=== PATIENT | female | born 1985 | race African-American/Black ===

== ENCOUNTER 2016-09-03 23:05 | Emergency (ER) | payer OTHER ==
[~2016-09-03] VITALS: Ht 157.5 cm; Wt 60.8 kg
[~2016-09-03 23:05] MED LIST: ACETAMINOPHEN-1 EAC1 ORAL; NITROFURANTOIN100 M2 ORAL; NKM; NORCO 5-325 TA1 EACH PO; PHENAZOPYRIDIN200 MG ORAL; VIBRAMYCIN100 MG ORAL
[2016-09-04 00:14] LABS: APPEARANCE,URINE CLEAR; KETONES,URINE NEGATIVE (NEGATIVE); LEUKOCYTE ESTERASE ,URINE 1+ (NEGATIVE); NITRITE,URINE NEGATIVE (NEGATIVE); PH,URINE 6 (4.5-8.0); PROTEIN,URINE NEGATIVE (NEGATIVE); UROBILINOGEN,URINE NORMAL MG/DL (0.0-1.0)
[2016-09-04 00:28] LABS: BACTERIA,URINE FEW /HPF; RBC,URINE 0 /HPF (0 - 2); SQUAMOUS EPITHELIAL CELL,UR MODERATE /LPF (NONE/OCC); WBC,URINE 0-2 /HPF (0 - 2)
[2016-09-04] MEDS ORDERED: METROGEL-VAGINA70 G1 VAGIN (00:45)
[2016-09-04] MEDS ORDERED: FLUCONAZOLE100 MG ORAL (00:45)
[2016-09-04 01:22] VITALS: BP 119/69
--- NOTE | 2016-09-04 02:44 | Emergency Room Report ---
History of Present Illness General Chief Complaint: Vaginal Source: Patient Present Illness HPI Patient present with complaints of vaginal itching and discharge Denies any pelvic pain Patient had a previous UTI and was also concerned about that Patient essentially active with one partner Denies any fevers or chills denies any vomiting or diarrhea She reports her vaginal discharge to have a foul smell to it Denies any recent antibiotic use Allergies: Coded Allergies: No Known Allergies (Unverified , 11/11/12) Patient History Past Medical History: see triage record Pertinent Family History: none Last Menstrual Period: AUG 26 Now: No : 2 Reviewed Nursing Documentation: PMH: Agreed, PSxH: Agreed Nursing Documentation-PMH Past Medical History: No Stated History Review of Systems All Other Systems: negative except mentioned in HPI Physical Exam Vital Signs Date Time Temp Pulse Resp B/P Pulse Ox O2 Delivery O2 Flow Rate FiO2 09/03/16 23:22 98.1 79 18 119/69 100 Room Air Sp02 EP Interpretation: reviewed, normal General Appearance: well appearing, no apparent distress Head: normocephalic, atraumatic Eyes: bilateral eye EOMI, bilateral eye PERRL ENT: normal pharynx, no angioedema Neck: supple, thyroid normal Gastrointestinal: non tender, soft, no mass, no organomegaly Genitourinary: no CVA tenderness Musculoskeletal: normal inspection Neurologic: alert, oriented x3, responsive Skin: normal color, no rash, warm/dry Lymphatic: no adenopathy Medical Decision Making Diagnostic Impression: Primary Impression: vaginosis ER Course Given the patient's lack of any pelvic or abdominal pain given the clinical symptoms of the discharge patient has been treated clinically for bacterial vaginosis possible yeast infection Further pelvic exam was deferred to [employer] followup in the next 2-3 days in a patient with any change in symptoms Urine sample did not show any obvious infectious pathology , Labs Test 09/04/16 00:00 Urine Color Pale yellow Urine Appearance Clear Urine pH 6 (4.5-8.0) Urine Specific [place] 1.015 (1.005-1.035) Urine Protein Negative (NEGATIVE) Urine Glucose (UA) Negative (NEGATIVE) Urine Ketones Negative (NEGATIVE) Urine Occult Blood Negative (NEGATIVE) Urine Nitrite Negative (NEGATIVE) Urine Bilirubin Negative (NEGATIVE) Urine Urobilinogen Normal MG/DL (0.0-1.0) Urine Leukocyte Esterase 1+ (NEGATIVE) Urine RBC 0 /HPF (0 - 2) Urine WBC 0-2 /HPF (0 - 2) Urine Squamous Epithelial Cells Moderate /LPF (NONE/OCC) Urine Bacteria Few /HPF (NONE) Urine HCG, Qualitative Negative Last Vital Signs Date Time Temp Pulse Resp B/P Pulse Ox O2 Delivery O2 Flow Rate FiO2 09/04/16 01:22 98.1 75 18 119/69 100 Room Air Status: unchanged Disposition: HOME, SELF-CARE Condition: Stable Scripts Fluconazole (FLUCONAZOLE) 100 Mg Tablet 100 MG ORAL DAILY, #1 TAB 0 Refills Prov: RODRIGO CASTANEDA D.O. 09/04/16 Metronidazole* (METROGEL-VAGINAL*) 70 Gm Gel.w.appl 1 APPL VAGIN EVERY 12 HOURS for 7 Days, #70 GM Prov: RODRIGO CASTANEDA D.O. 09/04/16 Referrals: JOSEPHINE GONZALEZ,REFERRING (PCP) Patient Instructions: Bacterial Vaginosis, [id number] Additional Instructions: Patient is provided with the discharge instructions notified to follow up with primary doctor in the next 2-3 days otherwise return to the er with any worsening symptoms. Please note that this report is being documented using [employer] technology. This can lead to erroneous entry secondary to incorrect interpretation by the dictating instrument. RODRIGO CASTANEDA D.O. Sep 04, 2016 02:44
== END 2016-09-04 01:24 | disposition home or self-care (01) ==
LOC: EMR 23:45
DX: N76.0 Acute vaginitis (principal)
CPT/HCPCS: 81003; 81025; 99284

== ENCOUNTER 2017-04-14 19:45 | Emergency (ER) | payer OTHER ==
[~2017-04-14] VITALS: Ht 157.5 cm; Wt 68.5 kg
[~2017-04-14 19:45] MED LIST changes: +FLUCONAZOLE100 MG ORAL; +METROGEL-VAGINA70 G1 VAGIN
[2017-04-14] MEDS ORDERED: Mylanta II UD 30ml ORAL ONE (20:30)
[2017-04-14] MEDS ORDERED: Lidocaine 2% Visc 15ml soln ORAL ONE (20:30)
--- NOTE | 2017-04-14 20:54 | Emergency Room Report ---
History of Present Illness General Chief Complaint: Abdominal Pain Source: Patient Present Illness HPI 31-year-old female presents to the emergency department complaining of 9/10 in severity epigastric pain intermittently x1 month. Patient denies fevers or chills. Patient reports associated nausea denies vomiting, constipation or diarrhea. Patient describes that she feels as though her stomach is in a knot. Patient denies dysuria, hematuria, urinary frequency or . Patient states that she was evaluated by her primary care doctor approximately one month ago and was prescribed cimetidine to be taking at night. Patient states she continues to have symptoms during the day. Denies blood in the stool or dark tarry stools. Denies NSAID use. Patient states eating food can sometimes exacerbate her symptoms but she also symptoms on and stomach.Denies CP, Palpitations, LOC, AMS, dizziness, Changes in Vision, Sensation, paresthesias, or a sudden severe headache. Allergies: Coded Allergies: No Known Allergies (Unverified , 11/11/12) Patient History Past Medical History: see triage record Past Surgical History: none Pertinent Family History: none Last Menstrual Period: Apr 10 Now: No : 2 Reviewed Nursing Documentation: PMH: Agreed, PSxH: Agreed Nursing Documentation-PMH Past Medical History: No Stated History Review of Systems All Other Systems: negative except mentioned in HPI Physical Exam Vital Signs Date Time Temp Pulse Resp B/P (MAP) Pulse Ox O2 Delivery O2 Flow Rate FiO2 04/14/17 20:14 97.9 73 18 117/75 98 Room Air Sp02 EP Interpretation: reviewed, normal General Appearance: no apparent distress, alert, GCS 15, non-toxic Head: normocephalic, atraumatic Eyes: bilateral eye normal inspection, bilateral eye PERRL ENT: hearing grossly normal, normal voice Neck: full range of motion, supple/symm/no masses Respiratory: lungs clear, normal breath sounds, speaking full sentences Cardiovascular #1: regular rate, rhythm Gastrointestinal: normal bowel sounds, non tender, soft, no guarding, no rebound Rectal: deferred Genitourinary: normal inspection, no CVA tenderness Musculoskeletal: back normal, gait/station normal, normal range of motion, non- tender Neurologic: alert, oriented x3, responsive, motor strength/tone normal, sensory intact, speech normal Psychiatric: judgement/insight normal, memory normal, mood/affect normal Skin: normal color, no rash, warm/dry, well hydrated Medical Decision Making PA Attestation Dr. mart is my supervising Physician whom patient management has been discussed with. Diagnostic Impression: Primary Impression: Gastritis Qualified Codes: K29.00 - Acute gastritis without bleeding ER Course 31-year-old female presents to the emergency department complaining of 9/10 in severity epigastric pain intermittently x1 month. Patient denies fevers or chills. Patient reports associated nausea denies vomiting, constipation or diarrhea. Patient describes that she feels as though her stomach is in a knot. Patient denies dysuria, hematuria, urinary frequency or . Patient states that she was evaluated by her primary care doctor approximately one month ago and was prescribed cimetidine to be taking at night. Patient states she continues to have symptoms during the day. Denies blood in the stool or dark tarry stools. Denies NSAID use. Patient states eating food can sometimes exacerbate her symptoms but she also symptoms on and stomach.Denies CP, Palpitations, LOC, AMS, dizziness, Changes in Vision, Sensation, paresthesias, or a sudden severe headache. Ddx considered but are not limited to GERD, PUD, GE, pancreatitis, gallstones, colitis, acute appy, SBO, * , Vital signs: pt. is afebrile, H&PE are most consistent with Gastritis. - no tenderness upon palpation of PE , no suspicious for pancreatitis or gall stones ORDERS: -Urine Hcg: negative ED INTERVENTIONS: -Gi Cocktail -Zantac PO -d/w pt. conservative treatment with addition of omeprazole daily, however she needs to have close outpatient follow up with her PMD, and Gi Specialist evaluation is recommended. d/w pt. that if symptoms do not improve with rx's that she may have H.pylori. DISCHARGE: At this time pt. is stable for d/c to home. Will provide printed patient care instructions, and any necessary prescriptions. Care plan and follow up instructions have been discussed with the patient prior to discharge. Labs Test 04/14/17 20:25 Urine HCG, Qualitative Negative Last Vital Signs Date Time Temp Pulse Resp B/P (MAP) Pulse Ox O2 Delivery O2 Flow Rate FiO2 04/14/17 20:14 97.9 73 18 117/75 98 Room Air Disposition: HOME, SELF-CARE Condition: Stable Scripts Omeprazole (OMEPRAZOLE) 20 Mg Capsule. 20 MG ORAL DAILY for 14 Days, #28 CAP Prov: Darlene Purcell 04/14/17 Patient Instructions: Gastritis, Adult Additional Instructions: Take medications as directed. Follow up with a Primary Care Provider in 3-5 days, even if your symptoms have resolved. GI SPECIALIST EVALUATION IS RECOMMENDED * --Please review list of primary care clinics, if you do not already have a primary care provider Return sooner to ED if new symptoms occur, or current symptoms become worse. - Please note that this Emergency Department Report was dictated using [employer] challenge instructor technology software, occasionally this can lead to erroneous entry secondary to interpretation by the dictation equipment. Darlene Purcell Apr 14, 2017 20:54
[2017-04-14] MEDS ORDERED: OMEPRAZOLE20 M2 ORAL (20:57)
[2017-04-14 21:05] VITALS: BP 120/91
== END 2017-04-14 21:05 | disposition home or self-care (01) ==
LOC: EMR 20:30 → EEVIPCON 20:30 → EMR 21:05
DX: K29.70 Gastritis, unspecified, without bleeding (principal)
CPT/HCPCS: 81025; 99284

== ENCOUNTER 2018-05-27 15:41 | Emergency (ER) | payer OTHER ==
[~2018-05-27] VITALS: Ht 157.5 cm; Wt 69.9 kg
[~2018-05-27 15:41] MED LIST changes: +OMEPRAZOLE20 M2 ORAL
[2018-05-27 15:55] VITALS: BP 125/84
--- NOTE | 2018-05-27 16:00 | Emergency Room Report ---
History of Present Illness General Chief Complaint: Chest Pain Source: Patient Present Illness HPI Patient reports that several days ago she started with symptoms consistent with her gastritis burning and irritation in the epigastric area and felt some burning into the midsternal area Yesterday she took a green capsule does not know what the name is however is usually for her stomach after that her symptoms worsened Patient felt that her chest pain presented after that Denies any vomiting or diarrhea she reports that off-and-on the chest pain has been present now for the past 2 days as well Denies any pleurisy denies any recent travel Allergies: Coded Allergies: No Known Allergies (Unverified , 11/11/12) Patient History Past Medical History: see triage record Pertinent Family History: none Last Menstrual Period: 04/27/18 Now: No Reviewed Nursing Documentation: PMH: Agreed; PSxH: Agreed Nursing Documentation-PMH Past Medical History: No Stated History Review of Systems All Other Systems: negative except mentioned in HPI Physical Exam Vital Signs Date Time Temp Pulse Resp B/P (MAP) Pulse Ox O2 Delivery O2 Flow Rate FiO2 05/27/18 15:45 98.1 105 22 125/84 100 Room Air Sp02 EP Interpretation: reviewed, normal General Appearance: well appearing, no apparent distress Head: normocephalic, atraumatic Eyes: bilateral eye PERRL, bilateral eye EOMI ENT: hearing grossly normal, normal pharynx, TMs + canals normal, uvula midline Neck: full range of motion, supple, no meningismus, no bony tend Respiratory: lungs clear, normal breath sounds, no rhonchi, no respiratory distress, no retraction, no accessory muscle use Cardiovascular #1: normal peripheral pulses, regular rate, rhythm, no edema, no gallop, no JVD, no murmur Gastrointestinal: normal bowel sounds, non tender, soft, no mass, no organomegaly, non-distended, no guarding, no hernia, no pulsatile mass, no rebound Genitourinary: no CVA tenderness Musculoskeletal: normal inspection Neurologic: oriented x3, responsive, insurance office supervisor III-XII nml as tested, motor strength/ tone normal, sensory intact Psychiatric: mood/affect normal Skin: normal color, no rash, warm/dry, palpation normal Lymphatic: normal inspection, no adenopathy Medical Decision Making Diagnostic Impression: Primary Impression: Chest pain ER Course Patient is a fairly complex patient with multiple differential to consideration including but not limited to cardiac cardiopulmonary and vascular emergencies Patient's EKG and chest x-ray are normal Consideration for pulmonary embolism is made however low likelihood given the scarring scale Patient resting comfortably the Mylanta did improve her gastric symptoms Patient will have conservative outpatient trial return with any worsening symptoms EKG Diagnostic Results Rate: normal Rhythm: NSR ST Segments: no acute changes Rhythm Strip Diag. Results EP Interpretation: yes Rate: 74 Rhythm: NSR, no PVC's, no ectopy Chest X-Ray Diagnostic Results Chest X-Ray Diagnostic Results : Chest X-Ray Ordered: Yes # of Views/Limited/Complete: 1 View Indication: Chest Pain EP Interpretation: Yes Interpretation: no consolidation, no effusion, no pneumothorax Impression: No acute disease Electronically Signed by: Liv Lennon DO Last Vital Signs Date Time Temp Pulse Resp B/P (MAP) Pulse Ox O2 Delivery O2 Flow Rate FiO2 05/27/18 15:45 98.1 105 22 125/84 100 Room Air Status: improved Disposition: HOME, SELF-CARE Condition: Improved Scripts Mag Hydrox/Al Hydrox/Simeth (MAALOX MAXIMUM STRENGTH SUSP) 355 Ml Oral.susp 30 ML PO BID for 5 Days, ML Prov: Liv Lennon DO 05/27/18 Additional Instructions: Patient is provided with the discharge instructions notified to follow up with primary doctor in the next 2-3 days otherwise return to the er with any worsening symptoms. Please note that this report is being documented using [employer] technology. This can lead to erroneous entry secondary to incorrect interpretation by the dictating instrument. Liv Lennon DO May 27, 2018 16:00
[2018-05-27] MEDS ORDERED: MAALOX MAXIMUM355 M1 PO (16:38)
[2018-05-27 16:53] VITALS: BP 113/67
--- NOTE | 2018-05-27 17:01 | Diagnostic Imaging Report ---
Indication: Chest pain Technique: One view of the chest Comparison: Findings: Lungs and pleural spaces are clear. Heart size is normal Impression: No acute process
== END 2018-05-27 16:53 | disposition home or self-care (01) ==
LOC: EMR 16:13
DX: R07.9 Chest pain, unspecified (principal); R10.13 Epigastric pain
CPT/HCPCS: 71045; 99283

== ENCOUNTER 2018-07-07 11:17 | Emergency (ER) | payer OTHER ==
[~2018-07-07] VITALS: Ht 157.5 cm; Wt 69.4 kg
[~2018-07-07 11:17] MED LIST changes: +MAALOX MAXIMUM355 M1 PO
[2018-07-07] MEDS ORDERED: XANAX0.25 MG ORAL (11:27)
[2018-07-07 11:28] VITALS: BP 122/75
--- NOTE | 2018-07-07 11:39 | Emergency Room Report ---
History of Present Illness General Chief Complaint: Dizziness Source: Patient Present Illness HPI Patient present with complaints of history of the normal menstrual bleeding along with lightheadedness and some dizziness patient reports that She initially had IUD device placed approximately 4 years ago She has been having heavy menstrual cycle since then Therefore she had the IUD device removed last week at [facility] she has been told by her primary physician that she is anemic and was on iron pills however has not taken them for the past 2 months Denies any chest pain denies any back or flank pain denies any vomiting Allergies: Coded Allergies: No Known Allergies (Unverified , 11/11/12) Patient History Past Medical History: see triage record Pertinent Family History: none Reviewed Nursing Documentation: PMH: Agreed; PSxH: Agreed Nursing Documentation-PMH Past Medical History: No History, Except For History Of Psychiatric Problem: Yes - anxiety Review of Systems All Other Systems: negative except mentioned in HPI Physical Exam Vital Signs Date Time Temp Pulse Resp B/P (MAP) Pulse Ox O2 Delivery O2 Flow Rate FiO2 07/07/18 11:21 98.4 83 20 116/72 99 Room Air Sp02 EP Interpretation: reviewed, normal General Appearance: well appearing, no apparent distress Head: normocephalic, atraumatic Eyes: bilateral eye PERRL, bilateral eye EOMI ENT: hearing grossly normal, normal pharynx, TMs + canals normal, uvula midline Neck: full range of motion, supple, no meningismus, no bony tend Respiratory: lungs clear, normal breath sounds, no rhonchi, no respiratory distress, no retraction, no accessory muscle use Cardiovascular #1: normal peripheral pulses, regular rate, rhythm, no edema, no gallop, no JVD, no murmur Gastrointestinal: normal bowel sounds, non tender, soft, no mass, no organomegaly, non-distended, no guarding, no hernia, no pulsatile mass, no rebound Genitourinary: no CVA tenderness Musculoskeletal: normal inspection Neurologic: oriented x3, responsive, sausage tier III-XII nml as tested, motor strength/ tone normal, sensory intact Psychiatric: mood/affect normal Skin: normal color, no rash, warm/dry, palpation normal Lymphatic: normal inspection, no adenopathy Medical Decision Making Diagnostic Impression: Primary Impression: Dizziness Additional Impression: Dysfunctional uterine bleeding ER Course With the patient's history and examination, multiple differentials considered, including but not limited to , ectopic , ovarian torsion, gastritis, cholecystitis, pancreatitis, appendicitis Patient's hemoglobin count is normal Patient remains hemodynamically stable At this time it was discussed regarding close outpatient follow-up Patient can return with any changes or concerns Labs Test 07/07/18 11:40 White Blood Count 12.8 K/UL (4.8-10.8) Red Blood Count 4.57 M/UL (4.20-5.40) Hemoglobin 12.2 G/DL (12.0-16.0) Hematocrit 37.9 % (37.0-47.0) Mean Corpuscular Volume 83 FL (80-99) Mean Corpuscular Hemoglobin 26.6 PG (27.0-31.0) Mean Corpuscular Hemoglobin Concent 32.1 G/DL (32.0-36.0) Red Cell Distribution Width 16.9 % (11.6-14.8) Platelet Count 322 K/UL (150-450) Mean Platelet Volume 7.7 FL (6.5-10.1) Neutrophils (%) (Auto) 83.6 % (45.0-75.0) Lymphocytes (%) (Auto) 11.7 % (20.0-45.0) Monocytes (%) (Auto) 3.9 % (1.0-10.0) Eosinophils (%) (Auto) 0.2 % (0.0-3.0) Basophils (%) (Auto) 0.6 % (0.0-2.0) Sodium Level 138 MMOL/L (136-145) Potassium Level 3.9 MMOL/L (3.5-5.1) Chloride Level 103 MMOL/L (98-107) Carbon Dioxide Level 26 MMOL/L (21-32) Anion Gap 9 mmol/L (5-15) Blood Urea Nitrogen 7 mg/dL (7-18) Creatinine 0.9 MG/DL (0.55-1.30) Estimat Glomerular Filtration Rate > 60 mL/min (>60) Glucose Level 89 MG/DL (74-106) Calcium Level 9.0 MG/DL (8.5-10.1) Human Chorionic Gonadotropin, Quant 1 mIU/mL (1-6) Last Vital Signs Date Time Temp Pulse Resp B/P (MAP) Pulse Ox O2 Delivery O2 Flow Rate FiO2 07/07/18 11:21 98.4 83 20 116/72 99 Room Air Status: improved Disposition: HOME, SELF-CARE Condition: Improved Referrals: JOSEPHINE GONZALEZ,REFERRING (PCP) Additional Instructions: Patient is provided with the discharge instructions notified to follow up with primary doctor in the next 2-3 days otherwise return to the er with any worsening symptoms. Please note that this report is being documented using [employer] technology. This can lead to erroneous entry secondary to incorrect interpretation by the dictating instrument. Liv Lennon DO Jul 07, 2018 11:39
[2018-07-07 11:57] LABS: BASOPHILS % (AUTO) 0.6 % (0.0-2.0); EOSINOPHILS % (AUTO) 0.2 % (0.0-3.0); HEMATOCRIT 37.9 % (37.0-47.0); HEMOGLOBIN 12.2 G/DL (12.0-16.0); LYMPHOCYTES % (AUTO) 11.7 % (20.0-45.0); MEAN CORPUSCULAR VOLUME 83 FL (80-99); MONOCYTES % (AUTO) 3.9 % (1.0-10.0); NEUTROPHILS % (AUTO) 83.6 % (45.0-75.0); PLATELET COUNT 322 K/UL (150-450); RED BLOOD COUNT 4.57 M/UL (4.20-5.40); RED CELL DISTRIBUTION WIDTH 16.9 % (11.6-14.8); WHITE BLOOD COUNT 12.8 K/UL (4.8-10.8)
[2018-07-07 12:09] LABS: ANION GAP 9 mmol/L (5-15); BLOOD UREA NITROGEN 7 mg/dL (7-18); CARBON DIOXIDE 26 MMOL/L (21-32); CHLORIDE 103 MMOL/L (98-107); CREATININE 0.9 MG/DL (0.55-1.30); POTASSIUM 3.9 MMOL/L (3.5-5.1); SODIUM 138 MMOL/L (136-145)
[2018-07-07 12:30] VITALS: BP 106/57
== END 2018-07-07 12:31 | disposition home or self-care (01) ==
LOC: EMR 11:36
DX: R42 Dizziness and giddiness (principal); N93.8 Other specified abnormal uterine and vaginal bleeding; F41.9 Anxiety disorder, unspecified
CPT/HCPCS: 36415; 80048; 84702; 85025; 99283

== ENCOUNTER 2018-08-16 13:41 | Emergency (ER) | payer OTHER ==
[~2018-08-16] VITALS: Ht 157.5 cm; Wt 69.4 kg
[~2018-08-16 13:41] MED LIST changes: +XANAX0.25 MG ORAL
--- NOTE | 2018-08-16 13:55 | NUR ---
ED Nurse Note: PT WALKED IN TO ER TODAY FROM HOME. AOX4. PT C/O NONRADIATING CHEST PAIN, 6/10 ACCOMPANIED BY LEFT SIDED NUMBNESS AND TINGLING X THIS AM. PT DENIES HEADACHE OR DIZZINESS. PT HAD STEADY GAIT WALKING TO BED. SENSATION AND CIRCULATION INTACT. PT STATES SHE HAS HX OF ANXIETY AND EXPERIENCES THESE SYMPTOMS DURING PANIC ATTACKS.
[2018-08-16 14:18] VITALS: BP 118/80
--- NOTE | 2018-08-16 14:18 | Emergency Room Report ---
History of Present Illness General Chief Complaint: Chest Pain Source: Patient, Medical Record Present Illness HPI Patient presents with complaints of left upper chest pain Reports that it started earlier today Denies any shortness of breath She feels that it was possibly her anxiety attacks patient has been prescribed Xanax by her primary physician however did not take any today Denies any abdominal pain denies any neuropathy Pain is 2 out of 10 tingling sensation left upper chest Denies any neck pain or photophobia denies any lightheadedness Allergies: Coded Allergies: No Known Allergies (Unverified , 11/11/12) Patient History Past Medical History: see triage record Pertinent Family History: none Now: No Reviewed Nursing Documentation: PMH: Agreed; PSxH: Agreed Review of Systems All Other Systems: negative except mentioned in HPI Physical Exam Vital Signs Date Time Temp Pulse Resp B/P (MAP) Pulse Ox O2 Delivery O2 Flow Rate FiO2 08/16/18 13:49 97.0 86 17 123/82 100 Room Air Sp02 EP Interpretation: reviewed, normal General Appearance: well appearing, no apparent distress Head: normocephalic, atraumatic Eyes: bilateral eye PERRL, bilateral eye EOMI ENT: hearing grossly normal, normal pharynx, TMs + canals normal, uvula midline Neck: full range of motion, supple, no meningismus, no bony tend Respiratory: lungs clear, normal breath sounds, no rhonchi, no respiratory distress, no retraction, no accessory muscle use Cardiovascular #1: normal peripheral pulses, regular rate, rhythm, no edema, no gallop, no JVD, no murmur Gastrointestinal: normal bowel sounds, non tender, soft, no mass, no organomegaly, non-distended, no guarding, no hernia, no pulsatile mass, no rebound Genitourinary: no CVA tenderness Musculoskeletal: normal inspection Neurologic: oriented x3, responsive, fishing accessories maker III-XII nml as tested, motor strength/ tone normal, sensory intact Psychiatric: mood/affect normal Skin: normal color, no rash, warm/dry, palpation normal Lymphatic: normal inspection, no adenopathy Medical Decision Making Diagnostic Impression: Primary Impression: Chest pain ER Course Patient is a fairly complex patient with multiple differential to consideration including but not limited to cardiac cardiopulmonary and vascular emergencies Patient's EKG is normal Remains hemodynamically stable I do have recent blood work on the patient in-house and therefore these are not required to be repeated Patient reports that she is out of her Xanax and is requested to follow-up with her primary physician for refill EKG Diagnostic Results Rate: normal Rhythm: NSR ST Segments: no acute changes Rhythm Strip Diag. Results EP Interpretation: yes Rate: 65 Rhythm: NSR, no PVC's, no ectopy Last Vital Signs Date Time Temp Pulse Resp B/P (MAP) Pulse Ox O2 Delivery O2 Flow Rate FiO2 08/16/18 13:49 97.0 86 17 123/82 100 Room Air Status: improved Disposition: HOME, SELF-CARE Condition: Improved Additional Instructions: Patient is provided with the discharge instructions notified to follow up with primary doctor in the next 2-3 days otherwise return to the er with any worsening symptoms. Please note that this report is being documented using [employer] technology. This can lead to erroneous entry secondary to incorrect interpretation by the dictating instrument. Liv Lennon DO Aug 16, 2018 14:17
[2018-08-16 14:40] VITALS: BP 122/83
--- NOTE | 2018-08-16 14:41 | NUR ---
ER Nurse Note: PT LAYING PEACEFULLY IN BED IN NAD. AO4. DISCHARGE PAPERWORK EXPLAINED TO PT. PT VERBALIZES UNDERSTANDING AND ALL QUESTIONS ANSWERED. DISCHARGE PAPERWORK GIVEN TO PT AND ID WRISTBAND REMOVED. PT WALKED OUT OF ER WITH STEADY GAIT AND ALL BELONGINGS.
== END 2018-08-16 14:44 | disposition home or self-care (01) ==
LOC: EMR 14:19
DX: R07.9 Chest pain, unspecified (principal)
CPT/HCPCS: 93005; 99282

== ENCOUNTER 2020-03-23 09:44 | Emergency (ER) | payer OTHER ==
[~2020-03-23] VITALS: Ht 157.5 cm; Wt 72.1 kg
[2020-03-23] MEDS ORDERED: Metoclopramide 10mg/2ml Inj IVP ONE (10:15)
[2020-03-23] MEDS ORDERED: DiphenhydrAMINE 50mg/ml Inj IVP ONE (10:15)
--- NOTE | 2020-03-23 10:23 | Emergency Room Report ---
History of Present Illness General Chief Complaint: Headache Source: Patient Present Illness HPI 34-year-old female presents with headache that started today progressive not sudden, left forehead, stabbing, feeling lightheaded, states that she was [facility] no known aggravating relieving factors severity is mild, constant, not sudden not worse in recumbent position no fevers no chills no neck stiffness, patient presents for evaluation and treatment Allergies: Coded Allergies: No Known Allergies (Unverified , 11/11/12) COVID-19 Screening Contact w/high risk pt: No Experienced COVID-19 symptoms?: No COVID-19 Testing performed CAN WASHER: No Patient History Past Medical History: see triage record Last Menstrual Period: 03/13/20 but still spotting Reviewed Nursing Documentation: PMH: Agreed; PSxH: Agreed Nursing Documentation-PMH Past Medical History: No History, Except For Review of Systems All Other Systems: negative except mentioned in HPI Physical Exam Vital Signs Date Time Temp Pulse Resp B/P (MAP) Pulse Ox O2 Delivery O2 Flow Rate FiO2 03/23/20 09:58 97.9 91 16 114/76 (89) 98 Room Air Sp02 EP Interpretation: reviewed, normal General Appearance: well appearing, no apparent distress, alert Head: normocephalic, atraumatic Eyes: bilateral eye PERRL, bilateral eye EOMI ENT: uvula midline, moist mucus membranes Neck: supple, thyroid normal, supple/symm/no masses Respiratory: lungs clear, no respiratory distress, no retraction, no accessory muscle use Cardiovascular #1: normal peripheral pulses, regular rate, rhythm, no edema, no gallop, no murmur Gastrointestinal: non tender, soft, no guarding, no rebound Musculoskeletal: normal inspection Neurologic: alert, motor strength/tone normal, conductor symphonic orchestra III-XII nml as tested, oriented x3, cerebellar normal - Finger-nose testing intact, normal gait, no pronator Psychiatric: mood/affect normal Skin: no rash, warm/dry Medical Decision Making Diagnostic Impression: Primary Impression: Headache Qualified Codes: R51 - Headache ER Course Based on the patient's history and physical there is very low clinical suspicion for significant intracranial pathology. There are no red flags of COWART, not sudden in onset, not maximal in onset, no acute neurological findings, no fever with h ead stiffness. Patient given plan, Tylenol, Decadron, with significant improvement in the headache History of headaches? yes Low suspicion for subarachnoid hemorrhage, encephalitis, meningitis. Disposition home with return precautions follow-up with PCP and neurology Laboratory Tests Test 03/23/20 10:08 03/23/20 10:19 Urine HCG, Qualitative Negative (NEGATIVE) White Blood Count 5.9 K/UL (4.8-10.8) Red Blood Count 4.92 M/UL (4.20-5.40) Hemoglobin 12.3 G/DL (12.0-16.0) Hematocrit 38.5 % (37.0-47.0) Mean Corpuscular Volume 78 FL (80-99) L Mean Corpuscular Hemoglobin 25.0 PG (27.0-31.0) L Mean Corpuscular Hemoglobin Concent 31.9 G/DL (32.0-36.0) L Red Cell Distribution Width 13.2 % (11.6-14.8) Platelet Count 324 K/UL (150-450) Mean Platelet Volume 8.0 FL (6.5-10.1) Neutrophils (%) (Auto) 60.9 % (45.0-75.0) Lymphocytes (%) (Auto) 30.0 % (20.0-45.0) Monocytes (%) (Auto) 6.6 % (1.0-10.0) Eosinophils (%) (Auto) 0.7 % (0.0-3.0) Basophils (%) (Auto) 1.8 % (0.0-2.0) Sodium Level 140 MMOL/L (136-145) Potassium Level 3.6 MMOL/L (3.5-5.1) Chloride Level 103 MMOL/L (98-107) Carbon Dioxide Level 26 MMOL/L (21-32) Anion Gap 11 mmol/L (5-15) Blood Urea Nitrogen 11 mg/dL (7-18) Creatinine 1.0 MG/DL (0.55-1.30) Estimated Glomerular Filtration Rate > 60 mL/min (>60) Glucose Level 93 MG/DL (74-106) Calcium Level 9.0 MG/DL (8.5-10.1) Total Bilirubin 0.4 MG/DL (0.2-1.0) Aspartate Amino Transferase (AST) 16 U/L (15-37) Alanine Aminotransferase (ALT) 20 U/L (12-78) Alkaline Phosphatase 85 U/L (46-116) Total Protein 7.7 G/DL (6.4-8.2) Albumin 4.0 G/DL (3.4-5.0) Globulin 3.7 g/dL Albumin/Globulin Ratio 1.1 (1.0-2.7) EKG Diagnostic Results EKG Time: 10:19 EP Interpretation: Sinus tachycardia, rate 139, QTc 404, no acute ST elevations, normal axis Rhythm Strip Diag. Results Rhythm Strip Time: 10:28 EP Interpretation: yes Rate: 120 Rhythm: other - Sinus tachycardia Last Vital Signs Date Time Temp Pulse Resp B/P (MAP) Pulse Ox O2 Delivery O2 Flow Rate FiO2 03/23/20 09:58 97.9 91 16 114/76 (89) 98 Room Air Disposition: HOME, SELF-CARE Condition: Stable Scripts Riboflavin (RIBOFLAVIN) 100 Mg Tablet 400 MG PO DAILY, #120 TAB Prov: Luis Alberto Gross MD 03/23/20 Referrals: JOSEPHINE GONZALEZ,REFERRING (PCP) [facility] Julissa Pineda [facility]. [facility] Patient Instructions: General Headache Without Cause Additional Instructions: The patient was provided with discharge instructions, notified to follow-up with a primary care doctor and or specialist in the next 24-48 hours, and to return to the ED if they have worsening of their symptoms. Please note that this report is being documented using DRAGON technology. This can lead to erroneous entry secondary to incorrect interpretation by the dictating instrument. Luis Alberto Gross MD Mar 23, 2020 10:23
[2020-03-23 10:51] LABS: ANION GAP 11 mmol/L (5-15); BLOOD UREA NITROGEN 11 mg/dL (7-18); CARBON DIOXIDE 26 MMOL/L (21-32); CHLORIDE 103 MMOL/L (98-107); POTASSIUM 3.6 MMOL/L (3.5-5.1); SODIUM 140 MMOL/L (136-145)
[2020-03-23 10:55] LABS: BASOPHILS % (AUTO) 1.8 % (0.0-2.0); EOSINOPHILS % (AUTO) 0.7 % (0.0-3.0); HEMATOCRIT 38.5 % (37.0-47.0); HEMOGLOBIN 12.3 G/DL (12.0-16.0); MEAN CORPUSCULAR VOLUME 78 FL (80-99); MONOCYTES % (AUTO) 6.6 % (1.0-10.0); NEUTROPHILS % (AUTO) 60.9 % (45.0-75.0); PLATELET COUNT 324 K/UL (150-450); RED BLOOD COUNT 4.92 M/UL (4.20-5.40); RED CELL DISTRIBUTION WIDTH 13.2 % (11.6-14.8); WHITE BLOOD COUNT 5.9 K/UL (4.8-10.8)
[2020-03-23 10:58] LABS: ALANINE AMINOTRANSFERASE 20 U/L (12-78); ALBUMIN/GLOBULIN RATIO 1.1 (1.0-2.7); ALKALINE PHOSPHATASE 85 U/L (46-116); ASPARTATE AMINO TRANSFERASE 16 U/L (15-37); BILIRUBIN,TOTAL 0.4 MG/DL (0.2-1.0)
[2020-03-23 11:08] VITALS: BP 118/81
[2020-03-23] MEDS ORDERED: RIBOFLAVIN100 MG PO (12:59)
[2020-03-23 13:09] VITALS: BP 115/81
== END 2020-03-23 13:10 | disposition home or self-care (01) ==
LOC: EMR 10:21
DX: R51 Headache (principal)
CPT/HCPCS: 36415; 80053; 81025; 85025; 93005; 96365; 96366; 96375; J1200; J2765; J7030; J8540; Z7502; 99284